=== PATIENT | male | born 1995 | race Caucasian/White ===

== ENCOUNTER 2022-10-19 19:32 | Emergency (ER) | payer SELFPAY ==
[2022-10-19] MEDS ORDERED: Sodium Chloride 0.9% 2.5 ML Syringe FLUSH PRN (19:41)
[2022-10-19] MEDS ORDERED: Sodium Chloride 0.9% 10 ML Syringe FLUSH PRN (19:41)
[2022-10-19] MEDS ORDERED: Sodium Chloride 0.9% 1,000 ML IV ONE (19:41)
[2022-10-19 20:22] LABS: BLOOD UREA NITROGEN,BUN 22 mg/dL (7.0-18.0); CARBON DIOXIDE,CO2 30.1 mmol/L (21.0-32.0); CHLORIDE,CL 103 mmol/L (98-107); GLUCOSE RANDOM 100 mg/dL (74-106); POTASSIUM,K 4.3 mmol/L (3.5-5.1); SODIUM,NA 139 mmol/L (136-148)
[2022-10-19 20:23] LABS: ESTIMATED GFR 122 mL/min (>60)
== END 2022-10-20 00:15 | disposition home or self-care (01) ==
LOC: MW.ED 19:32
DX: R55 Syncope and collapse (principal)
CPT/HCPCS: 36415; 70450; 71045; 80053; 80305; 80307; 81003; 83735; 84484; 85025; 96360; 99285; J3490; J7030